=== PATIENT | born 1995 | race Caucasian/White ===

== ENCOUNTER 2024-01-09 06:52 | Day surgery (SDC) | payer BC, MEDICAID, SELFPAY ==
[2024-01-09 07:06] VITALS: BP 143/88; PULSE 69; RESP 16; TEMP 36; O2SAT 97
[2024-01-09 07:07] VITALS: BMI 25.7
--- NOTE | 2024-01-09 07:10 | W.PM.OPSFHP ---
Same Day Surgery H&P Indication for Procedure/HPI DATE OF PROCEDURE: January 09, 2024 CHIEF COMPLAINT/INDICATIONFOR SURGICAL PROCEDURE: Gastritis PREOP DIAGNOSIS: gastritis and epigastric pain PLANNED PROCEDURE: Operation Date: 01/09/24 08:25 Proposed Procedures p EGD - 69131, K21.9(Not Applicable) - Max Valenzuela MD Medications/Allergies* Home Medications Medication Instructions Recorded Confirmed Type omeprazole 40 mg capsule,delayed 40 mg PO ONCE 12/06/23 01/09/24 History release triamcinolone acetonide 0.1 % 1 applic topical ONCE PRN Rash 12/06/23 01/09/24 History topical ointment Allergies/Adverse Reactions Allergy/AdvReac Type Severity Reaction Status Date / Time No Known Allergies Allergy Unverified 12/06/23 13:08 Pertinent History/Comorbid Conditions* Family History (Updated 12/06/23 @ 13:13 by JS Pinto) Heart disease Mother Father Cancer Grandmother lung Thyroid disease Mother Social History Smoking and tobacco/nicotine status: never used tobacco/nicotine Pertinent Exam Findings alert, oriented x 3 and clear to auscultation bilaterally Recommendations Surgery/Procedure today Coding Level of Care Code Acute Code for Chg Fwd
[2024-01-09] MEDS: sodium chloride 0.9% 1,000 ML 30 ML IV (07:11)
--- NOTE | 2024-01-09 07:41 | ANES.PREANE2 ---
Pre-Anesthetic Assessment Height/Weight: Height 1.88 m Weight 90.718 kg Temp Pulse Resp BP Pulse Ox O2 Del Method 96.8 F 69 16 143/88 97 Room Air 01/09/24 07:06 01/09/24 07:06 01/09/24 07:06 01/09/24 07:06 01/09/24 07:06 01/09/24 07:06 Preop Diagnosis: gastritis and epigastric pain Operation Date: 01/09/24 08:25 Proposed Procedures p EGD - 16853, K21.9(Not Applicable) - Max Valenzuela MD Familial anesthetic complications: none Was Beta Devante taken within 24 hours: N/A Was Clonidine taken within 24 hours: N/A Last intake: Intake Last Liquid Date 01/09/24 Last Liquid Time 00:00 Last Solid Date 01/08/24 Last Solid Time 20:00 Social No alcohol and No tobacco Exam alert, oriented x 3 and clear to auscultation bilaterally Airway Mallampati: Class I Dentition: full History/ROS No significant history except as noted Pulmonary None reported CV/HEM None reported None reported Hepatic None reported GI Gastroesophageal Reflux Disease epigastric pain Metabolic None reported Musc/skel None reported Neuropsych None reported Anesthetic Plan ASA status: 1 Anesthesia: Anesthesia Evaluation and MAC Risk of > 500 ml blood loss (7ml/kg in children): No Medications/Allergies Home Medications Medication Instructions Recorded Confirmed Last Taken Type omeprazole 40 mg capsule,delayed 40 mg PO ONCE 12/06/23 01/09/24 01/08/24 History release triamcinolone acetonide 0.1 % 1 applic topical ONCE PRN Rash 12/06/23 01/09/24 01/08/24 History topical ointment Allergies Allergy/AdvReac Type Severity Reaction Status Date / Time No Known Allergies Allergy Unverified 12/06/23 13:08 Current Medications Generic Name Dose Route Start Last Admin Trade Name Freq PRN Reason Stop Dose Admin Sodium Chloride 1,000 mls @ 30 mls/hr 01/09/24 07:00 01/09/24 07:11 Sodium Chloride 0.9% IV 30 mls/hr .Q24H SIRENA Administration PFSH Anesthesia Family History (Updated 12/06/23 @ 13:13 by JS Pinto) Mother Heart disease Thyroid disease Grandmother Cancer lung Father Heart disease Social History Smoking and tobacco/nicotine status: never used tobacco/nicotine Data Anesthesia Cardiac Studies: No Data to Display
[2024-01-09 08:05] VITALS: BP 106/75; PULSE 84; RESP 14; TEMP 36.4; O2SAT 96
[2024-01-09 08:20] VITALS: BP 122/73; PULSE 65; RESP 16; O2SAT 95
--- NOTE | 2024-01-09 08:30 | ANE.PACU2 ---
Inpatient post-anesthesia follow up: Airway intact: Yes Vital signs: Temperature 97.6 F Pulse Rate 65 Respiratory Rate 16 Blood Pressure 122/73 Pulse Oximetry 95 Oxygen Delivery Me thod Room Air Oxygen Flow Rate Fraction of Inspir ed Oxygen Hydration adequate: Yes Nausea and vomiting: No Pain level: 1 Mental status: Baseline
== END 2024-01-09 08:30 | disposition home or self-care (01) ==
PROVIDERS: PCP Family Medicine; Visit Provider Surgery
PROC: 0DJ08ZZ Inspection of Upper Intestinal Tract, Via Natural or Artificial Opening Endoscopic (ICD-10-PCS; CPT 43235; principal; 2024-01-09 08:25)
DX: K21.9 Gastro-esophageal reflux disease without esophagitis (principal); K31.89 Other diseases of stomach and duodenum; K29.70 Gastritis, unspecified, without bleeding
CPT/HCPCS: 43239; 83630; 83993; 88305; J2704; J7030